=== PATIENT | male | born 1975 | race Caucasian/White ===

== ENCOUNTER 2020-11-01 10:33 | Emergency (ER) | payer SELFPAY ==
[2020-11-01 10:54] VITALS: BP 136/93; PULSE 91; RESP 14; TEMP 36.4; O2SAT 98; BMI 29.2
--- NOTE | 2020-11-01 11:09 | ED_ITS ---
HPI - Extremity Problem General: Chief complaint: Extremity Injury, Lower Stated complaint: right leg injury Time Seen by Provider: 11/01/20 11:01 History of Present Illness: HPI Narrative: Patient is a 44-year-old male comes to the ED with right lower extremity injury and pain. Patient says last night he was playing [employer] and he went to kick the [email or web address] more with his right leg. The grass was wet so patient slipped causing him to fall down into the splint position with his right leg in front of him on his left leg behind him. Patient says he heard and felt a couple pops during incident. Says he immediately had some swelling in his hamstring region of right thigh and pain that goes up from his right thigh up into his right hip. Says it hurts to walk and bear weight and straightening out his right knee causes pain in his hamstring region. He rates the pain currently a 5 out of 10. Denies any other injury. Associated symptoms: Deny chest pain, fever(s) or rash Review of Systems Const: Denies: fever(s), chills or fatigue Eyes: Denies: change in vision or eye discomfort ENMT: Denies: throat pain, odynophagia, nasal discharge or nasal congestion Card: Denies: chest pain, palpitations, edema, swelling of feet/ankles, dyspnea on exertion or orthopnea Resp: Denies: dyspnea, productive cough or non-productive cough GI: Denies: abdominal pain, nausea, vomiting, diarrhea, constipation or hematochezia : Denies: flank pain, difficulty urinating, dysuria or hematuria Musc: Reports: extremity pain (right hip and thigh pain); Denies: neck pain, back pain or extremity swelling Skin/Breast: Denies: rash or new lesions Neuro: Denies: headache(s), numbness in extremities or weakness in extremities Physical Exam 2 Const: COMMON NORMALS: no acute distress, patient oriented x3 and alert GENERAL APPEARANCE: cooperative and comfortable HENMT: COMMON NORMALS: normocephalic HEAD & SCALP: normocephalic MOUTH: Normal oral and palatal mucosa present THROAT: posterior oropharynx normal and uvula midline Neck/C-Spine: COMMON NORMALS: supple GENERAL: Yes normal visual inspection Resp: COMMON NORMALS: normal respiratory effort, No retractions, No use of accessory muscles and clear to auscultation bilaterally AUSCULTATION: clear to auscultation bilaterally Cardio: COMMON NORMALS: regular rate, regular rhythm, S1 normal heart sound present, S2 normal heart sound present, No gallops present (Cardio), No clicks present (Cardio), No murmurs present (Cardio) and Peripheral pulses 2+ throughout RATE: regular rate RHYTHM: regular rhythm HEART SOUNDS: S1 normal heart sound present and S2 normal heart sound present PERIPHERAL PULSES: Peripheral pulses 2+ throughout GI: COMMON NORMALS: Normal to inspection, nondistended, normoactive bowel sounds present, Soft to palpation, non-tender and no masses PALPATION: Yes Soft to palpation : COMMON NORMALS: Yes no CVA tenderness BLADDER/KIDNEY EXAM: Yes no CVA tenderness Back/Pelvis: COMMON NORMALS: no CVA tenderness Extremity: RIGHT LOWER EXTREMITY: Yes upper leg Right upper leg: Yes inspection (No visible deformity noted. Mild swelling noted.), Yes palpation (Tenderness over hamstring) and Yes neurovascular exam (Intact) Neuro: COMMON NORMALS: patient oriented x3 and moves all extremities SENSORIUM/ORIENTATION: Yes alert Skin: GENERAL SKIN EXAM: dry skin Course Vital Signs: Vital signs: Vital Signs Temperature 97.6 F 11/01/20 10:54 Pulse Rate 91 11/01/20 10:54 Respiratory Rate 14 11/01/20 10:54 Blood Pressure 136/93 11/01/20 10:54 Pulse Oximetry 98 11/01/20 10:54 MDM - Extremity (Nontraumatic) MDM Narrative: Medical decision making narrative: Patient is a 44-year-old male comes to the ED with right lower extremity injury. Patient was playing sport activity and slipped patient did splits causing the right hamstring muscle pain. He described having pain in his hamstring and up into his right hip. X- rays of right hip and right femur showed no acute fractures or findings. Exam findings remarkable for some right hamstring tenderness. Neurovascular intact. patient diagnosed with hamstring muscle strain given a shot of Toradol while here in the ED. He was discharged home with some crutches and a prescription for cyclobenzaprine and ibuprofen 800 mg tablets. He was told to rest ice and elevate right leg and to follow-up with his PCP in 7 to 10 days for reevaluation. Return to ED precautions given. Patient understood and agree with plan. Imaging Data^: Xray Ortho: Attestation: I personally reviewed and interpreted this imaging study as follows: My impression: Right hip and right femur x-ray showed no acute fractures or findings. Discharge Plan Discharge Patient Disposition: Home Clinical Impression: Hamstring muscle strain Qualifiers: Encounter type: initial encounter Laterality: right Qualified Code(s): S76.311A - Strain of muscle, fascia and tendon of the posterior muscle group at thigh level, right thigh, initial encounter Condition: Stable Prescriptions: New ibuprofen 800 mg tablet 800 mg PO Q8H PRN (Reason: pain) Qty: 20 RF: 0 cyclobenzaprine 5 mg tablet 5 mg PO BID PRN (Reason: muscle spasm) Qty: 20 RF: 0 No Action ibuprofen 200 mg Tablet 600 mg PO PRN RF: 0 Discharge Orders: Discharge ED (Routine); Ordered 11/01/20 Ordered By: Vijay Wan Discharge Diet: Regular Discharge Activity: Increase activity as tolerated and Use walker/crutches as instructed Patient Instructions: Muscle Strain (ED) Activity Restrictions/Additional Instructions: Follow-up with medical provider as directed in 7 to 10 days for reevaluation. Take medications as prescribed. Cyclobenzaprine as a muscle relaxer and can cause some drowsiness so take at night before bed. Rest ice and elevate right leg. Use crutches for the next couple days to limit activity with right leg and to allow for healing. Return to the ER or your medical provider if condition worsens. Please read and understand discharge instructions. Thank you for choosing [facility] for your healthcare needs today. Please realize this is an emergency room and that we are providing you with a medical screening exam and this may not be complete and all inclusive of all the testing and or work up that you may need to determine your ailment or severity of your illness. It is very important that you follow up as instructed or that you return to the Emergency Department should you have concerns or if your condition changes or worsens in any way. Coding Level of Care Code ED Warp Bleaching Vat Tender for Doreen Gentile Exam Comprehensive
--- NOTE | 2020-11-01 11:16 | XRR_ITS ---
PROCEDURE INFORMATION: Exam: XR Right Hip Exam date and time: 11/01/2020 11:18 AM Age: 44 years old Clinical indication: Injury or trauma; Fall; Blunt trauma (contusions or hematomas); Right; Hip; Additional info: Fall injury with pain TECHNIQUE: Imaging protocol: XR Right hip. Views: 2 or 3 views hip with pelvis when performed. COMPARISON: CT Chest/Abdomen/Pelvis w IV* 03/28/2019 3:06 AM FINDINGS: Bones/joints: No acute bony injury or malalignment in the visualized right hip. Soft tissues: Unremarkable soft tissues. Intraperitoneal space: Subcentimeter pelvic calcifications, presumably vascular in etiology. XR/XR hip RT 2-3V wo/w pel* [id number] IMPRESSION: No acute bony injury or malalignment in the visualized right hip.
--- NOTE | 2020-11-01 11:16 | XRR_ITS ---
PROCEDURE INFORMATION: Exam: XR Right Femur Exam date and time: 11/01/2020 11:46 AM Age: 44 years old Clinical indication: Injury or trauma; Fall; Blunt trauma; Thigh or upper leg; Right; Additional info: Fall injury with pain TECHNIQUE: Imaging protocol: XR Right femur. Views: 2 views. COMPARISON: No relevant prior studies available. FINDINGS: Bones/joints: No acute bony injury or malalignment in the visualized right femur. Soft tissues: No radiopaque soft tissue foreign body. XR/XR femur RT min 2V* [id number] IMPRESSION: No acute bony injury or malalignment in the visualized right femur.
[2020-11-01] MEDS: ketorolac 60 mg/2 mL INJ IM (11:49)
[2020-11-01 12:31] VITALS: RESP 18
== END 2020-11-01 12:33 | disposition home or self-care (01) ==
PROVIDERS: Emergency Provider Physician Assistant
DX: S76.311A Strain of muscle, fascia and tendon of the posterior muscle group at thigh level, right thigh, initial encounter (principal); W01.0XXA Fall on same level from slipping, tripping and stumbling without subsequent striking against object, initial encounter
CPT/HCPCS: 73502; 73552; 96372; 99283; E0114; J1885

== ENCOUNTER 2023-09-17 10:13 | Emergency (ER) | payer SELFPAY ==
[2023-09-17] VITALS (9 sets, daily range): BP systolic 128–169; BP diastolic 84–109; PULSE 65–87; RESP 13–24; TEMP 36.9; O2SAT 91–100; BMI 25.1
--- NOTE | 2023-09-17 10:25 | CTR_ITS ---
PROCEDURE INFORMATION: Exam: CT Abdomen And Pelvis With Contrast Exam date and time: 09/17/2023 10:52 AM Age: 47 years old Clinical indication: Abdominal pain; Localized; Right lower quadrant (rlq); Prior surgery; Surgery date: <1 month; Surgery type: Lt hernia; Additional info: Rlq abdominal pain TECHNIQUE: Imaging protocol: Computed tomography of the abdomen and pelvis with contrast. Radiation optimization: All CT scans at this facility use at least one of these dose optimization techniques: automated exposure control; mA and/or kV adjustment per patient size (includes targeted exams where dose is matched to clinical indication); or iterative reconstruction. Contrast material: OMNI 350; Contrast volume: 100 ml; Contrast route: INTRAVENOUS (IV); COMPARISON: CT Chest/Abdomen/Pelvis w IV* 03/28/2019 3:06 AM RADIATION DOSE METRICS: Total DLP (mGy-cm): 664.85 FINDINGS: Tubes, catheters and devices: New surgical clips anterior left pelvis. Lungs: A few small noncalcified nodules in the lung bases are unchanged so are considered benign. Slightly increased small amounts of bilateral dependent atelectasis Esophagus: Persistent thickening of the distal esophagus wall, so this is believed to be esophagitis. Liver: Unchanged mild, diffuse fatty infiltration of the liver. Unchanged small low-density liver lesions, so these are considered benign Otherwise, unremarkable. Gallbladder and bile ducts: Normal. No calcified stones. No ductal dilation. Pancreas: Normal. No ductal dilation. Spleen: Normal. No splenomegaly. Adrenal glands: Normal. No mass. Kidneys and ureters: Tiny cortical left renal cysts are considered benign. There is a fairly round 5 mm calculus in the proximal right ureter near the ureteropelvic junction causing mild right hydronephrosis, a diffusely decreased right nephrogram, and a large amount of asymmetric fat stranding and disorganized fluid around the right kidney, right renal pelvis, and proximal right ureter. These are likely all findings of high-grade obstructive uropathy. However, the stranding around the normal caliber right ureter distal to the calculus raises the possibility of superimposed right urinary tract infection/pyelonephritis. Please correlate clinically for such. Otherwise, unremarkable. Stomach and bowel: There are a few borderline dilated distal jejunal loops in the left abdomen and upper left pelvis with air-fluid levels. This is probably focal adynamic ileus or enteritis. The more proximal and distal small bowel is unremarkable. Much less likely this could be an early closed loop small bowel obstruction. A few diverticula from the colon. Unchanged fat in the wall of most of the left colon which appears slightly thick walled. This is unchanged. The fat suggests chronic inflammation of this portion of the colon. Otherwise, unremarkable. Appendix: No evidence of appendicitis. Intraperitoneal space: Unremarkable. No free air. No significant fluid collection. Vasculature: Unchanged small amount of arterial calcification. Otherwise, unremarkable. Lymph nodes: Unremarkable. No enlarged lymph nodes. Urinary bladder: Unremarkable as visualized. Reproductive: Unremarkable as visualized. Bones/joints: Unchanged mild scoliosis with minimal and mild multilevel spondylosis unchanged intramedullary marcellus in the visualized proximal left femur. Otherwise, unremarkable. Soft tissues: Left inguinal hernia is moderate in size, slightly increased in the interval. It contains fat as before, but it contains a new 1.3 cm by 2.6 cm thick walled cystic area medially which could indicate inflammation/infection. It could be a seroma related to the recent surgery. Otherwise, unremarkable visualized body wall. Otherwise, unremarkable soft tissues. CT/CT abdomen pelvis w con* [id number] IMPRESSION: 1. 5 mm calculus in the right ureter near the ureteropelvic junction causing high-grade obstructive uropathy. 2. There may be a superimposed right urinary tract infection/right pyelonephritis. Please correlate clinically for this. 3. A few borderline dilated distal jejunal loops with air-fluid levels. These are not thick walled. This is likely focal adynamic ileus or enteritis. Much less likely this could be a very early closed loop bowel obstruction. 4. Chronic inflammation most of the left colon is suspected and unchanged. Chronic esophagitis. 5. New surgical clips anterior left pelvis. A moderate left inguinal hernia is increased slightly in size, and contains a small new fluid collection which could be inflammation/infection or postoperative seroma. 6. Additional details as above. COMMENTS: Consistent with the [employer]'s Incidental Findings Committee white paper (J Am Ariel Radiol 2018): Any incidental renal lesion less than 1 cm or classified as too small to characterize, or any incidental cystic renal lesion characterized as simple-appearing, is likely benign. No follow-up imaging is recommended for these lesions per consensus recommendations based on imaging criteria.
--- NOTE | 2023-09-17 10:27 | ED_ITS ---
HPI - Abdominal Pain 2 General: Chief Complaint: Abdominal Pain Stated Complaint: lower right side abd pain, sob Time Seen by Provider: 09/17/23 10:22 History of Present Illness: 47-year-old man with a history of kidney stones and a recent hernia repair who presents the emergency room with severe right lower quadrant abdominal pain. He says this started overnight. He has had some nausea and vomiting. No known fevers. He says it hurts when he breathes deep. Radiates into his flank. Down into his groin. He is diaphoretic on presentation. Appears in quite a bit of pain. No chest pain. No shortness of breath. No altered mental status. Review of Systems 2 Narrative: Constitutional symptoms: Negative except as documented in HPI. Skin symptoms: Negative except as documented in HPI. Eye symptoms: Negative except as documented in HPI. ENMT symptoms: Negative except as documented in HPI. Respiratory symptoms: Negative except as documented in HPI. Cardiovascular symptoms: Negative except as documented in HPI. Gastrointestinal symptoms: Negative except as documented in HPI. Genitourinary symptoms: Negative except as documented in HPI. Musculoskeletal symptoms: Negative except as documented in HPI. Neurologic symptoms: Negative except as documented in HPI. Psychiatric symptoms: Negative except as documented in HPI. Endocrine symptoms: Negative except as documented in HPI. PFSH ED 2 PFSH: Social History Smoking and tobacco/nicotine status: current every day tobacco/nicotine user cigarettes Second hand smoke exposure: Yes Alcohol intake: current Alcohol intake frequency: 0-2 Drinks per Day Alcohol type: beer Substance/Drug Use: current Substance/Drug use frequency: few times a week Physical Exam 2 Narrative: EXAM NARRATIVE: General: Alert, appears in quite a bit of pain. Skin: Warm, diaphoretic. Head: Normocephalic, atraumatic. Neck: Supple, trachea midline. Eye: Extraocular movements are intact. Ears, nose, mouth and throat: mucosa moist. Cardiovascular: Regular, Normal peripheral perfusion. Respiratory: Lungs are clear to auscultation, respirations are non-labored, breath sounds are equal, Symmetrical chest wall expansion. Gastrointestinal: Soft, patient is very tender in his lower abdomen, more on the right than the left, Non distended, Normal bowel sounds. Musculoskeletal: Normal ROM, no deformity. Neurological: Alert and oriented, No focal neurological deficit observed. Psychiatric: Cooperative, appropriate mood & affect. Course 2 Vital Signs: Vital signs: Vital Signs Temperature 98.4 F 09/17/23 10:17 Pulse Rate 73 09/17/23 13:00 Respiratory Rate 17 09/17/23 13:37 Blood Pressure 136/95 09/17/23 13:00 Pulse Oximetry 99 09/17/23 13:00 Oxygen Delivery Me thod Room Air 09/17/23 13:00 MDM - Abdominal Pain Medical Decision Making Medical decision making: Differential diagnosis for this patient with right lower quadrant abdominal pain including but not limited to and based on the above HPI, review of systems and physical exam: Ureterolithiasis. Urinary tract infection. Appendicitis. colitis. small bowel obstruction. Crohn's flare. Pancreatitis. Cholelithiasis or cholecystitis. Hepatitis. Diverticulitis. Constipation. ovarian cyst. ovarian torsion Workup: Orders were placed to evaluate differential diagnosis based on the above differential, HPI and exam: Lab Review: Laboratory results were reviewed and interpreted by myself the emergency room physician. Patient has a white count of 11. Hemoglobin 16.9. BUN and creatinine are 11 and 0.6. Urinalysis shows 10-15 red cells and 0-4 white cells. Nitrite negative. CT of the abdomen pelvis with contrast:: 1. 5 mm calculus in the right ureter near the ureteropelvic junction causing high-grade obstructive uropathy. 2. There may be a superimposed right urinary tract infection/right pyelonephritis. Please correlate clinically for this. 3. A few borderline dilated distal jejunal loops with air-fluid levels. These are not thick walled. This is likely focal adynamic ileus or enteritis. Much less likely this could be a very early closed loop bowel obstruction. 4. Chronic inflammation most of the left colon is suspected and unchanged. Chronic esophagitis. 5. New surgical clips anterior left pelvis. A moderate left inguinal hernia is increased slightly in size, and contains a small new fluid collection which could be inflammation/infection or postoperative seroma. 6. Additional details as above. I reviewed the patient's medical record Consultation: I spoke with Dr. Piero Rossi with urology at [facility]. We agree that the left stone is probably subacute to old. He is not have any symptoms currently. He definitely does need intervention in the near future but not emergently. He agrees with IV Rocephin and if pain can be controlled he would like to see the patient in clinic tomorrow. As far as the findings of the jejunal loops, with the patient's pain being controlled he will go home if symptoms worsen return to the emergency room. Reexamination: Patient seems to be feeling a bit better. I called him in some oxycodone. He will follow-up with Dr. Rossi tomorrow or return to the emergency room if his pain worsens. No increased work of breathing. No altered mental status. No focal motor deficits. Lab Data 09/17/23 10:31 09/17/23 10:31 Labs/Radiology: Radiology Impressions Abdomen/Pelvis CT 09/17/23 10:25 IMPRESSION: 1. 5 mm calculus in the right ureter near the ureteropelvic junction causing high-grade obstructive uropathy. 2. There may be a superimposed right urinary tract infection/right pyelonephritis. Please correlate clinically for this. 3. A few borderline dilated distal jejunal loops with air-fluid levels. These are not thick walled. This is likely focal adynamic ileus or enteritis. Much less likely this could be a very early closed loop bowel obstruction. 4. Chronic inflammation most of the left colon is suspected and unchanged. Chronic esophagitis. 5. New surgical clips anterior left pelvis. A moderate left inguinal hernia is increased slightly in size, and contains a small new fluid collection which could be inflammation/infection or postoperative seroma. 6. Additional details as above. COMMENTS: Consistent with the [employer]'s Incidental Findings Committee white paper (J Am Ariel Radiol 2018): Any incidental renal lesion less than 1 cm or classified as too small to characterize, or any incidental cystic renal lesion characterized as simple-appearing, is likely benign. No follow-up imaging is recommended for these lesions per consensus recommendations based on imaging criteria. ADDENDUM: 09/17/23 1157 ADDENDUM: THIS REPORT CONTAINS FINDINGS THAT MAY BE CRITICAL TO PATIENT CARE. The findings were verbally communicated via telephone conference with AGUSTINA HERNANDEZ at 11:56 AM CDT on 09/17/2023. The findings were acknowledged and understood. Laboratory Results WBC 11.16 10^3/uL (3.29-11.43) 09/17/23 10:31 RBC 5.59 10^6/uL (3.85-5.65) 09/17/23 10:31 Hgb 16.90 g/dL (11.27-16.99) 09/17/23 10:31 Hct 47.5 % (37-53) 09/17/23 10:31 MCV 85.0 fl (82-101) 09/17/23 10:31 MCH 30.2 pg (27-33) 09/17/23 10:31 MCHC 35.6 g/dL (30-55) 09/17/23 10:31 RDW 11.6 % (12.1-15.1) L 09/17/23 10:31 Plt Count 267 10^3/cmm (157-399) 09/17/23 10:31 MPV 8.2 fL (7.4-10.4) 09/17/23 10:31 Neut % (Auto) 72.4 % 09/17/23 10:31 Lymph % (Auto) 16.7 % 09/17/23 10:31 Stanley % (Auto) 7.1 % 09/17/23 10:31 Eos % (Auto) 3.1 % 09/17/23 10:31 Baso % (Auto) 0.4 % 09/17/23 10:31 Neut # (Auto) 8.09 10^3/uL (1.8-7.7) H 09/17/23 10:31 Lymph # (Auto) 1.9 10^3/uL (0.8-4.8) 09/17/23 10:31 Stanley # (Auto) 0.8 10^3/uL (0.2-0.9) 09/17/23 10:31 Eos # (Auto) 0.4 10^3/uL (0.0-0.8) 09/17/23 10:31 Baso # (Auto) 0.0 10^3/uL (0.0-0.1) 09/17/23 10:31 Nucleated RBC % (auto) 0 % 09/17/23 10:31 Nucleated RBCs # 0.0 /100WBC 09/17/23 10:31 Sodium 142 mmol/L (136-145) 09/17/23 10:31 Potassium 3.6 mmol/L (3.5-5.1) 09/17/23 10:31 Chloride 106 mmol/L (98-107) 09/17/23 10:31 Carbon Dioxide 22 mmol/L (22-29) 09/17/23 10:31 Anion Gap 17.6 (5-19) 09/17/23 10:31 BUN 11 mg/dL (6-20) 09/17/23 10:31 Creatinine 0.6 mg/dL (0.7-1.2) L 09/17/23 10:31 GFR Calculation 143.8 mL/min (90-130) H 09/17/23 10:31 Glucose 107 mg/dL (65-115) 09/17/23 10:31 Calculated Osmolality 294 mOsm/kg (285-295) 09/17/23 10:31 Lactic Acid 1.3 mmol/L (0.5-2.2) 09/17/23 10:31 Calcium 9.9 mg/dL (8.5-10.5) 09/17/23 10:31 Total Bilirubin 1.1 mg/dL (0.15-1.2) 09/17/23 10:31 AST 28 U/L (0-40) 09/17/23 10:31 ALT 16 U/L (0-41) 09/17/23 10:31 Alkaline Phosphatase 111 U/L (40-130) 09/17/23 10:31 C-Reactive Protein 3.0 mg/L (0.0-4.9) 09/17/23 10:31 Total Protein 7.6 g/dL (6.6-8.7) 09/17/23 10:31 Albumin 4.8 g/dL (3.5-5.2) 09/17/23 10:31 Globulin 2.8 g/dL (1.3-4.6) 09/17/23 10:31 Urine Color Yellow (Yellow) 09/17/23 11:14 Urine Appearance Hazy (CLEAR) A 09/17/23 11:14 Urine pH 9 (5-7) H 09/17/23 11:14 Ur Specific [place] 1.020 (1.005-1.030) 09/17/23 11:14 Urine Protein Neg (Negative) 09/17/23 11:14 Urine Glucose (UA) Norm (Normal) 09/17/23 11:14 Urine Ketones 1+ (Negative) H 09/17/23 11:14 Urine Blood 3+ (Negative) H 09/17/23 11:14 Urine Nitrate Negative (Negative) 09/17/23 11:14 Urine Bilirubin Neg (Negative) 09/17/23 11:14 Prot Sulfosalicylic Acd Negative (Negative) 09/17/23 11:14 Urine Urobilinogen Norm mg/dL (Negative) 09/17/23 11:14 Ur Leukocyte Esterase Negative (Negative) 09/17/23 11:14 Urine RBC 10-15 /hpf (0-2) H 09/17/23 11:14 Urine WBC 0-4 /hpf (0-5) H 09/17/23 11:14 Ur Squamous Epith Cells None /hpf (0-5) 09/17/23 11:14 Amorphous Sediment 1+ /hpf 09/17/23 11:14 Urine Bacteria Trace /hpf (NONE) 09/17/23 11:14 All radiology interpretation(s) finalized by discharge Other Data Assessment and plan: -IV Rocephin, 2 L normal saline bolus, 2 doses of Dilaudid, and IV Toradol. -Consultation with urology. They agree with plan. -I do not believe he is developing a small bowel obstruction, but if symptoms worsen he is aware of the findings on the CT on return to the emergency room. - Discharged home - Discussed findings and plan with patient. Answered any questions. - All laboratory values were reviewed and interpreted personally by myself, the ER physician - All imaging was reviewed and interpreted personally by myself, the ER physician. - Evaluation and treatment of this problem were appropriate in the emergency setting Discharge Plan Discharge Patient Disposition: Home Clinical Impression: Calculus of proximal left ureter, Abdominal pain, Urinary tract infection, Dehydration Condition: Stable Prescriptions: New Flomax 0.4 mg capsule 0.4 mg PO DAILY Qty: 30 0RF oxycodone 5 mg capsule 5 mg PO Q6H PRN (Reason: pain) Qty: 20 0RF cefdinir 300 mg capsule 300 mg PO BID 10 Days Qty: 20 0RF ondansetron 8 mg tablet,disintegrating 8 mg PO .q6 PRN (Reason: nausea and vomiting) Qty: 14 0RF No Action oxycodone 5 mg tablet 5 mg PO Q6H PRN (Reason: Pain) Discharge Orders: Discharge ED (Routine); Ordered 09/17/23 Ordered By: Agustina Hernandez Referrals: Aj Claros, [Primary Care Provider] - (You have been screened and evaluated and felt safe for discharge. Health conditions do change or evolve sometimes and as such it is important that you follow up with your Primary Doctor to be re checked, 3-5 days is a general good time frame for follow up. You are always welcome to return to the ED for re assessment if your symptoms are worsening or you have new concerns) Piero Rossi MD [Referring] - (Please follow-up with Dr. Rossi tomorrow. If you do not hear from them by 9 AM call his clinic to confirm a time.) Discharge Diet: Advance as tolerated Discharge Activity: Increase activity as tolerated Patient Instructions: Urinary Tract Infection in Men (ED), Abdominal Pain (ED), Ureteral Stones (ED) Coding Level of Care Code ED St[employer] Operator for Doreen Gentile
--- NOTE | 2023-09-17 10:30 | PC.PHAR ---
pts states the pt takes no prescription medication or otc medications-states the pt had some oxycodone 5mg q6h prn filled 08/16/23 3d/s states he took one this am around 4-states the pt would not take the flomax 0.4mg daily for 14 days filled 08/15/23 14d/s states he read the side affects and wont take it-
[2023-09-17 10:36] LABS: Basophils % 0.4 %; Eosinophils # 0.4 10^3/uL (0.0-0.8); Eosinophils % 3.1 %; Hematocrit 47.5 % (37-53); Lymphocytes # 1.9 10^3/uL (0.8-4.8); Lymphocytes % 16.7 %; Mean Corpuscular HGB Conc 35.6 g/dL (30-55); Mean Corpuscular Hemoglobin 30.2 pg (27-33); Mean Platelet Volume 8.2 fL (7.4-10.4); Monocytes # 0.8 10^3/uL (0.2-0.9); Monocytes % 7.1 %; Neutrophils # 8.09 10^3/uL (1.8-7.7); Neutrophils % 72.4 %; Nucleated Red Blood Cells % 0 %; Platelet Count 267 10^3/cmm (157-399); Red Blood Count 5.59 10^6/uL (3.85-5.65); Red Cell Distribution Width 11.6 % (12.1-15.1); White Blood Count 11.16 10^3/uL (3.29-11.43)
[2023-09-17] MEDS: sodium chloride 0.9% 1,000 ML 999 ML IV ×2 (10:39→13:36)
[2023-09-17] MEDS: HYDROmorphone 1 mg/mL INJ 1 mL IVP ×2 (10:40→13:37)
[2023-09-17] MEDS: ondansetron 2 mg/ML SDV 2 mL 4 MG IVP (10:41)
[2023-09-17 10:52] LABS: Lactic Sepsis W/Reflex 1.3 mmol/L (0.5-2.2)
[2023-09-17 10:53] LABS: Alanine Aminotransferase 16 U/L (0-41); Albumin Level 4.8 g/dL (3.5-5.2); Alkaline Phosphatase 111 U/L (40-130); Anion Gap 17.6 (5-19); Aspartate Amino Transferase 28 U/L (0-40); Blood Urea Nitrogen 11 mg/dL (6-20); Calcium 9.9 mg/dL (8.5-10.5); Carbon Dioxide 22 mmol/L (22-29); Chloride 106 mmol/L (98-107); Globulin 2.8 g/dL (1.3-4.6); Glomerular Filtration Rate 143.8 mL/min (90-130); Glucose 107 mg/dL (65-115); Osmolality Calculated 294 mOsm/kg (285-295); Potassium 3.6 mmol/L (3.5-5.1); Sodium 142 mmol/L (136-145); Total Bilirubin 1.1 mg/dL (0.15-1.2); Total Protein 7.6 g/dL (6.6-8.7)
[2023-09-17] MEDS: iohexol 350 mg/mL 500 mL Btl (per mL) IV (10:53)
[2023-09-17 11:09] LABS: Creatinine Clr Calc Pharmacy 165.7678
[2023-09-17 11:45] LABS: Urine Color Yellow (Yellow)
[2023-09-17 11:46] LABS: Amorphous Sediment Urine 1+ /hpf; Bacteria Urine TRACE /hpf; Bilirubin Urine Neg (Negative); Blood Urine 3+ (Negative); Glucose Urine UA Norm (Normal); Ketones Urine 1+ (Negative); Leukocyte Esterase Urine Negative (Negative); Nitrate Urine Negative (Negative); Protein Urine Neg (Negative); Sulfosalicylic Acid Urine Negative (Negative); Urine Appearance Hazy (CLEAR); Urobilinogen Urine Norm (Negative); WBC Urine 0-4 /hpf (0-5); pH Urine 9 (5-7)
[2023-09-17 11:47] LABS: Add Urine Culture? Yes
[2023-09-17] MEDS: cefTRIAXone 1,000 MG in sodium chloride 0.9% (plus) 50 ML 100 MG IV (12:25)
[2023-09-17] MEDS: ketorolac 30 mg/mL INJ IVP (13:38)
== END 2023-09-17 14:36 | disposition home or self-care (01) ==
PROVIDERS: Emergency Provider Emergency Medicine; PCP Family Medicine
DX: N20.1 Calculus of ureter (principal); N39.0 Urinary tract infection, site not specified; E86.0 Dehydration; F17.210 Nicotine dependence, cigarettes, uncomplicated
CPT/HCPCS: 36415; 74177; 80053; 81001; 83605; 85025; 86140; 87040; 87086; 96361; 96365; 96375; 96376; 99285; J0696; J1170; J1885; J2405; J7030; Q9967